=== PATIENT | female | born 1960 | race Caucasian/White ===

== ENCOUNTER 2017-11-14 05:46 | Day surgery (SDC) | payer OTHER ==
[2017-11-14] MEDS ORDERED: DIPRIVAN 200 MG/20 ML IV ONE (05:47)
[2017-11-14] MEDS ORDERED: Versed 2 MG/2 ML Injection IV ONE (05:47)
[2017-11-14] MEDS ORDERED: Lactated Ringers 1,000 ML IV SCH (07:00)
[2017-11-14 09:07] VITALS: BP 143/86; PULSE 59; O2SAT 94
--- NOTE | 2017-11-14 12:05 | OP ---
SURGERY DATE/TIME: 11/14/2017 0725 PREOPERATIVE DIAGNOSIS: Screening colonoscopy. POSTOPERATIVE DIAGNOSIS: Two small sessile polyps in the distal sigmoid colon. PROCEDURE: Colonoscopy. SURGEON: Cameron Monteiro M.D. ANESTHESIA: MAC by Hugo Nathan CRNA. ESTIMATED BLOOD LOSS: Minimal. SPECIMENS: Two cold forceps polypectomies from the distal sigmoid colon. DESCRIPTION OF PROCEDURE: After informed written consent was obtained, the patient was taken to the endoscopy suite. She underwent monitored anesthesia and digital rectal exam showed normal sphincter tone and no internal lesions. The scope was inserted into the rectum and sequentially the entire colonic mucosa was traversed. The level of cecum was reached and verified with direct visualization of ileocecal valve. Prep was noted to be fair as there was some liquid stool in different areas throughout the colon but overall good visualization was achieved. There were two small sessile polyps in the distal sigmoid colon which were removed in their entirety with forceps. There was minimal bleeding and the entire lesions were removed and sent for pathology. Prior to withdrawal retroflexion showed no internal lesions. The scope was removed and the patient was transferred to the recovery room in excellent condition. I have advised that she hold her aspirin for the next week as the polypectomy sites heal. Otherwise she is to follow up in the office for pathology results in a week.
== END 2017-11-14 09:15 | disposition home or self-care (01) ==
LOC: SDC 05:46
PROVIDERS: ATTEND Family Medicine
PROC: 0DBN8ZX Excision of Sigmoid Colon, Via Natural or Artificial Opening Endoscopic, Diagnostic (ICD-10-PCS; principal; 2017-11-14)
DX: Z12.11 Encounter for screening for malignant neoplasm of colon (principal); K63.5 Polyp of colon
CPT/HCPCS: J2250; J2704

== ENCOUNTER 2023-02-14 10:50 | Day surgery (SDC) | payer OTHER ==
[2023-02-14] MEDS ORDERED: Depo-Medrol 40 MG/ML IM ONE (10:51)
[2023-02-14] MEDS ORDERED: Sodium Chloride 0.9(Preservative Free) 10 ML IJ ONE (10:51)
[2023-02-14] MEDS ORDERED: DIPRIVAN 200 MG/20 ML IV ONE (13:31)
--- NOTE | 2023-02-14 14:59 | XRAY ---
Indication: Right L4-S1 transforaminal MAE. Intraoperative fluoroscopy was provided for 30 seconds. 6 digital spot images submitted for interpretation demonstrates posterior needle tips projecting over the expected right L4 and L5 nerve roots. Small amount of contrast injected for needle tip placement. Correlate with intraoperative findings/report.
[2023-02-14] MEDS ORDERED: Lactated Ringers 1,000 ML IV ONE (16:19)
--- NOTE | 2023-02-14 16:27 | XRAY ---
30 seconds of fluoroscopy was used in surgery for a right L4-S1 transforaminal MAE.
== END 2023-02-14 14:00 | disposition home or self-care (01) ==
LOC: SDC-PAIN 10:50
PROVIDERS: ATTEND Psychiatry & Neurology Pain Medicine
DX: M54.16 Radiculopathy, lumbar region (principal); Z79.899 Other long term (current) drug therapy
CPT/HCPCS: 64483; 64484; 72100; 77003; J1030; J2704; Q9966